=== PATIENT | female | born 1980 | race Caucasian/White ===

== ENCOUNTER → 2017-08-03 15:38 | Outpatient (CLI) | payer BC, SELFPAY ==
[2017-08-08 10:15] LABS: HPV Reflexed? NOT INDICATED
== END ==
PROVIDERS: Family Provider Internal Medicine; PCP Internal Medicine; Visit Provider Obstetrics & Gynecology
DX: Z12.4 Encounter for screening for malignant neoplasm of cervix (principal)
CPT/HCPCS: 88175; G0145

== ENCOUNTER 2018-01-01 21:06 | Emergency (ER) | payer BC, SELFPAY ==
[2018-01-01 21:06] VITALS: BP 130/87; PULSE 100; RESP 16; TEMP 37.7; O2SAT 96; BMI 37.1
[2018-01-01 22:30] LABS: Bacteria 0 SEEN /hpf (None Seen); Mucous, Urine 0 SEEN /hpf (<or=2+); Red Blood Cells-Urine 0 SEEN /hpf (0-5)
[2018-01-01 22:32] LABS: Color, Urine Yellow (Yellow); Glucose, Dipstick Normal (Normal); Ketone-Dipstick Negative (Negative); Leukocyte Esterase-Dipstick 100 /ul (Negative); Nitrite-Dipstick Negative (Negative); Occult Blood-Urine Negative /ul (Negative); Protein-Dipstick 15 mg/dl (Negative); Urine Bilirubin Dipstick Negative (Negative); Urine Clarity Clear (Clear); Urine Urobilinogen Normal (Normal)
[2018-01-01 22:45] LABS: Squamous Epithelial Cells - UA 0-5 SEEN /hpf (5-10); White Blood Cells 0-5 SEEN /hpf (0-5)
--- NOTE | 2018-01-01 22:47 | ED.VISSUMM ---
- ER Visit Summary Date of Service: 01/01/18 Chief Complaint: Abdominal pain History of Present Illness: The patient is a 37 F medical history. Prior cholecystectomy and C-sections. Patient states yesterday morning she started getting midepigastric and periumbilical abdominal pain. Associated nausea. No vomiting. No diarrhea. No constipation. No dysuria. Last menstrual period was approximately 3 weeks ago. She denies any melena. No fever. No back pain. Denies any abdominal trauma. Worse with eating better if she does not ingest food or liquids. Physical Examination: Well-appearing female vital signs stable afebrile. Temperature 998. Does not look septic or toxic. No acute distress. H EENT exam unremarkable. Neck nontender. Lungs clear to auscultation bilaterally. Heart regular rhythm no murmur. Abdomen soft. Nondistended. Normal bowel sounds. No peritoneal signs. No signs of obstruction. Both the right upper right lower quadrant unremarkable. Mild tenderness in the midepigastric and periumbilical area. Moving all 4 extremities. Neurovascularly intact. Back nontender. Neurologically awake alert no focal deficits. Test Results: CBC shows elevated white count of 15.8. H&H of 13 and 40. No bands. Electrolytes unremarkable normal gap and creatinine. Liver enzymes unremarkable except ALT is 81 AST is 68. Lipase normal. UA normal. negative. Emergency Department Course and Treatment: Patient treated with IV fluids. IV Zofran. Treatment Plan: Multiple repeat exams patient is doing well. Her abdomen is benign at this time at 01 22. She was treated with IV Toradol. She has absolutely no right lower quadrant abdominal pain. She is comfortable being discharged home with Zofran home pack. Will follow up with her primary care physician Dr. Micki Quintanilla tomorrow. I did speak to Dr. Waite on-call this evening. Disposition: Discharge Impression: Acute abdominal pain cof uncertain etiology This note was generated with [employer]park dictation software. It may contain incorrect words, spelling, and punctuation that were not noted in review of the chart prior to signing ED Disposition - Plan for ED Patient: Chief Complaint: Flank Pain Referrals: Salena Quarles DO [Primary Care Provider] -
[2018-01-01] MEDS: Ondansetron 4 MG/2 ML Vial IV (23:10)
[2018-01-01] MEDS: 0.9% Normal Saline 1,000 ML 1000 ML IV (23:10)
[2018-01-01 23:14] LABS: Pregnancy, Serum, hCG Quali. NEGATIVE Negative (0-9 Nonpreg)
[2018-01-01 23:14] LABS: Absolute Neutrophil Count 11.8 X10^3/uL (2.0-7.7); Basophil# 0.04 X10^3/uL; Basophil% 0.3 % (0-1); Eosinophil# 0.16 X10^3/uL; Hematocrit 40.2 % (37-47); Hemoglobin 13.5 g/dl (12.0-15.0); Lymphocyte % 16.4 % (19-41); Mean Corp Hgb Conc 33.6 g/gl (32-36); Mean Corpuscular Hgb 27.5 pg (27.0-32.0); Mean Corpuscular Volume 81.9 fL (81-99); Mean Platelet Vol. 11.7 fl (6.2-12.0); Monocyte# 1.18 X10^3/uL; Monocyte% 7.5 % (0-10); Neutrophil # 11.82 X10^3/uL (2.7-7.7); Neutrophil % 74.6 % (47-70); Platelet Count 224 K/mm3 (150-450); RBC Distribution Width CV 13.6 % (11.6-14.6); RBC Distribution Width SD 40.2 fl (35.1-43.9); Red Blood Count 4.91 M/mm3 (4.2-5.4); White Blood Count 15.8 K/mm3 (4.4-11.0)
[2018-01-01 23:15] LABS: POSITIVE COUNT NO; POSITIVE DIFFERENTIAL NO; POSITIVE MORPHOLOGY NO
[2018-01-01 23:25] LABS: AST(SGOT) 68 U/L (15-37); Alanine Aminotransfer ALT/SGPT 81 U/L (13-56); Albumin, Serum 3.6 g/dL (3.2-5.0); Alkaline Phosphatase 103 U/L (45-117); Anion Gap 6 (5-15); BUN 11 mg/dL (7-18); BUN/Creat Ratio 13.9 RATIO (10-20); Bilirubin, Direct 0.21 mg/dL (0.00-0.30); Calcium,Total 8.5 mg/dL (8.5-10.1); Chloride 104 mmol/L (98-107); Creatinine, Serum 0.79 mg/dL (0.55-1.02); EST Glomerular Filtration Rate 86 mL/min (>60); Est Glom Filt Rate - Afr Amer 105 mL/min (>60); Estimated Creatinine Clearance 90.39 ml/min; Globulin 4.1 g/dL (2.2-4.2); Glucose 103 mg/dL (74-106); Lipase 126 U/L (73-393); Potassium 3.8 mmol/L (3.5-5.1); Protein, Total 7.7 g/dL (6.4-8.2); Sodium Level 138 mmol/L (136-145)
[2018-01-02] MEDS: Ondansetron 4 MG/2 ML Vial IV (00:04)
[2018-01-02 00:06] VITALS: BP 136/85; PULSE 87; RESP 16; O2SAT 96
[2018-01-02] MEDS: Ketorolac 30 MG/ML Syringe IV (00:57)
--- NOTE | 2018-01-02 01:32 | DCINST.ED_ITS ---
ED Disposition - Plan for ED Patient: Disposition: Home or Assisted Living Chief Complaint: Flank Pain Instructions: ED Abdominal Pain Unkn Cause Referrals: Salena Quarles DO [Primary Care Provider] - 1 Day Additional Instructions: Zofran as needed for nausea. Tylenol and Motrin for pain. Call and follow-up with your doctor tomorrow. I did speak to the doctor mainframe applications developer for her tonight. Return to ER if feeling a lot worse or if pain radiates to the right lower quadrant.
[2018-01-02] MEDS: Ondansetron ODT 4 MG Tablet PO (01:46)
[2018-01-02 01:47] VITALS: BP 122/79; PULSE 90; RESP 16; O2SAT 99
== END 2018-01-02 01:48 | disposition home or self-care (01) ==
PROVIDERS: Emergency Provider Emergency Medicine; Family Provider Internal Medicine; PCP Internal Medicine
DX: R10.13 Epigastric pain (principal); R10.33 Periumbilical pain
CPT/HCPCS: 80048; 80076; 81001; 83690; 84703; 85025; 96361; 96374; 96375; 96376; 99285; J7030; A4216; J2405

== ENCOUNTER → 2018-10-23 | Outpatient (CLI) | payer BC, SELFPAY ==
[2018-10-23 19:54] LABS: Chlamydia Trachomatis by PCR Negative (Negative); Neisserai gonorrhoeae by PCR Negative (Negative); Probe Check PASS; Sample Adequacy Control PASS; Specimen Processing Control PASS
== END | disposition home or self-care (01) ==
LOC: LABSPEC 17:06
PROVIDERS: Visit Provider Obstetrics & Gynecology
DX: Z11.3 Encounter for screening for infections with a predominantly sexual mode of transmission (principal)
CPT/HCPCS: 87491; 87591

== ENCOUNTER 2019-02-12 20:32 | Emergency (ER) | payer BC, SELFPAY ==
[2019-02-12 20:33] VITALS: BP 152/85; PULSE 88; RESP 20; TEMP 36.7; O2SAT 97; BMI 40.1
--- NOTE | 2019-02-12 22:11 | ED.VIS.GEN ---
History of Present Illness Chief Complaint: Rash Detail of Chief Complaint: Poison sanaz Informant: Patient Onset: Yesterday Context: Sudden Onset Timing: Continuous Quality: Pruritic red rash Location: Face and neck Current Severity: Mild Maximum Severity: Moderate Worsened by: Itching Relieved by: Nothing Associated Symptoms: No associated symptoms Narrative: 38-year-old woman sent to the emergency department by her primary care physician for a Kenalog injection. Patient is on no immunosuppressive meds. She does not have history of glaucoma, ulcers and has no contraindication to systemic steroids. Prior similar symptoms: Yes Recent Illness/Hospitalization: No - Past Medical History (1) No significant past medical history Status: Acute Past Medical History - Allergies and Home Meds Allergies/Adverse Reactions: Allergies codeine phosphate [From Tylenol-Codeine #3] Allergy (Verified 02/12/19 20:33) Unknown doxycycline Allergy (Verified 02/12/19 20:33) Unknown methylergonovine maleate [From Methergine] Allergy (Verified 02/12/19 20:33) Unknown Primary Care Physician: Salena Quarles DO [Primary Care Provider] - Prior records reviewed: No Past Medical History: None Surgical History: cholecystectomy - 4 cholecystitis, no history gallstones Lives: Spouse/ Significant Other Smoking Status: Never smoker Alcohol: Rare Drugs: None - Family History Maternal Family History: Reports: No pertinent history - Living, no history pancreas disorder Paternal Family History: Reports: No pertinent history - Living, no history of pancreas disorder Review of Systems General: Denies: Chills, Fever, Sweats Eyes: Denies: Visual changes - bilaterally, Blurred Vision - bilaterally, Diplopia ENT: Denies: Bilateral ear pain, Rhinorrhea, Sore throat Musculoskeletal: Denies: Myalgias, Arthralgias, Neck pain, Back pain, Swelling, Extremity Pain, -, - Skin: Reports: Rash. Denies: Wounds Allergy: Denies: Uticaria, Swelling of the mouth, Swelling of the tongue Physical Exam Vital Signs/Narrative: Vital Signs Temp Pulse Resp BP Pulse Ox 02/12/19 20:33 98.1 F 88 20 H 152/85 H 97 Inital Vital Signs reviewed: Yes General: Well nourished, Well developed, No Acute Distress Head: Normocephalic, Atraumatic Eyes: Perrl, EOMI. Negative for: Pale conjunctiva, Scleral icterus ENT: Moist mucous membranes, No rhinorrhea Neck: Supple, Nontender, No lymphadenopathy, No JVD Skin: Normal color, No Trauma, Rash. Negative for: Cyanosis, Diaphoresis, Jaundice Neurological: Alert, Oriented x3, Cranial nerves II-XII grossly intact, Normal Strength, Normal Sensation Psychological: Normal affect, Normal Mood Diagnostic/Tx/Re-eval - Medical Decision Making She has rash consistent with contact dermatitis, poison sanaz. Since this involves the face, eyelids and neck will place on systemic steroids. She received her first dose of prednisone in the emergency department. ED Disposition - Plan for ED Patient: Disposition: Home or Assisted Living Diagnosis: Allergic dermatitis due to rhus diversjordanoba Instructions: Poison Sanaz Dermatitis Prescriptions: Prednisone 10 mg PO UD #33 tab Prescription Printed Referrals: Salena Quarles DO [Primary Care Provider] - 1 Week if not improving
[2019-02-12 22:31] VITALS: RESP 16
[2019-02-12] MEDS: predniSONE 20 MG Tablet 60 MG PO (22:31)
== END 2019-02-12 22:35 | disposition home or self-care (01) ==
LOC: ED 22:22
PROVIDERS: Emergency Provider Emergency Medicine; Family Provider Internal Medicine; PCP Internal Medicine
DX: L23.7 Allergic contact dermatitis due to plants, except food (principal)
CPT/HCPCS: 99282

== ENCOUNTER → 2019-05-27 09:36 | Outpatient (CLI) | payer BC, SELFPAY ==
--- NOTE | 2019-05-27 09:39 | RAD_ITS ---
STUDY: X-RAY - LUMBAR SPINE REASON FOR EXAM: Female, 38 years old. LBP AFTER TWISTING TECHNIQUE: 4 view(s) of the lumbar spine were obtained. COMPARISON: None FINDINGS: Normal lumbar lordosis. There is no substantial scoliosis. There is a normal alignment of the vertebrae. There is minimal multilevel endplate spondylosis of the lumbar vertebrae. Normal disc space heights. The soft tissue structures are unremarkable. RAD/L/S Spine Min 4 Views IMPRESSION: Minimal degenerative changes Electronically Signed: Neo Rashid MD at 8:18 EST Tel , Service support ,
== END ==
PROVIDERS: Family Provider Internal Medicine; PCP Internal Medicine; Referring Provider Nurse Practitioner Gerontology; Visit Provider Nurse Practitioner Gerontology
DX: M54.5 Low back pain (principal)
CPT/HCPCS: 72110

== ENCOUNTER 2019-05-31 08:26 | Outpatient (RCR) | payer BC, SELFPAY ==
--- NOTE | 2019-05-31 10:04 | HP.PTEVAL_ITS ---
Patient's Visit Information CASI CABRERA is a 38 year old F referred to Physical Therapy by Anahy Salmon NP-C with a diagnosis of LBP. Date of Evaluation: 05/31/19 Physical Therapist: Anika Rock PT, Cert MDT - Visit Plan Frequency: 2-3x /Week Duration: 4-6 Weeks Plan: POSTURE CORRECTION/STRENGTHENING, INSTRUCTION IN APPROPRIATE BODY MECHANICS AND ACTIVITY MODIFICATIONS. DLS STARTING WITH A NEUTRAL SPINE PROGRESSING ROM TOLERATED. GISELE LE ROM, STRETCHING AND STRENGTHENING. HEP INSTRUCTION. 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 HAS BEEN OFF WORK ALL WEEK. HOPING TO GO BACK MONDAY. Disability: NO. Present symptoms: LOW BACK PAIN. HAS NOT HAD LEG SX'S (GISELE THIGHS) SINCE MONDAY - ABOUT 3 DAYS AGO. Present since: MAY 23 2019. Pain Scale: WORST 7/10, LEAST 3/10. Currently: 3/10. Commenced as a result of: BENT AND TWISTED AT THE SAME TIME QUICKLY. Symptoms at onset: BACK AND GISELE THIGHS. Worse: SITTING, RISING FROM SITTING, GETTING UP AND DOWN, RAISING LEGS, TRYING TO BEND. LIFTING. STANDING. WALKING. Better: ICE. SUPINE ON FLOOR. Disturbed sleep: YES. Previous history/Previous treatment: UNREMARKABLE. THIS EPISODE - TWO CHIROPRACTIC VISIT - MONDAY AND MONDAY. WORSE AFTER MONDAY VISIT - I FELT LIKE CRAP. FELT BETTER MONDAY AND BETTER TODAY. STATES THE CHIROPRACTOR SAID SHE WAS OUT OF ALIGNMENT AND CAUSED THE MUSCLES TO SPASM. HAPPENED ON VACATION IN [place]. DROVE THERE AND WENT ON A CRUISE. CAME HOME BY CAR TOO. REFERRED TO PT AND CHIROPRACTOR BY DR. APARICIO'S GRILL ATTENDANT. STILL ON STEROID DOSE ELBA. Coughing/sneezing/straining: MILD. Gait: DECREASED CADANCE. GUARDED. Difficulty initiating urinatin: NO. Accidents: NO. Unexplained weight loss: NO. Imaging: LUMBAR X-RAY - SPONDYLOSIS. PMH/Recent major surgery: UNREMARKABLE. - Objective Sitting/Standing Posture: POOR. FH. RS. Lordosis: NORMAL. Lateral shift: NO. Relevant shift: N/A. Active Correction of posture: BETTER. Other Observations: SLOW AND GUARDED BUT INDEP GAIT INTO PT WITHOUT AD. Motor deficit: GISELE LE'S GROSSLY 5/5 WITH MMT'ING EXCEPT HIPS GRADED 4-/5. Sensory deficit: GISELE LE LIGHT TOUCH SENSATION INTACT AND SYMMETRICAL. ROM deficit: TIGHT GISELE LE HS'S. Reflexes: UNABLE TO ELICIT GISELE LE DTR'S. Dural Signs: POSITIVE GISELE LE'S. Lumbar mvmt loss: flex - MOD TO LYUDMILA. ext - MOD. R SG - MOD. L SG - MOD. INCREASED C/O LBP WITH LUMBAR FLEXION ROM TEST. GUARDED AND LIMITED ALL PLANES BUT NOT VERY PAINFUL INTO EXT AND GISELE SG'ING WITH TESTING. Core strength: POOR. TREATMENT: NEUROMUSCULAR REEDUCATION: RETRAINING OF MVMT AND POSTURE FOR SITTING, LYING AND STANDING ACTIVITIES. - Goals Goal 1:: DECREASE C/O LOW BACK PAIN Goal Time Frame: 4-6 Weeks Goal 2:: IMPROVE PERSONAL CARE, LIFTING, SITTING, STANDING, SLEEP, TRAVEL, HOMEMAKING, WORK AND RECREATIONAL FUNCTION. Goal Time Frame: 4-6 Weeks Goal 3:: INSTRUCT IN PROPHYLAXIS Goal Time Frame: 4-6 Weeks - Rehabilitation Potential Rehabilitation Potential: Good - Anticipated Interventions Patient/Client Instruction: Educate patient on: Condition, Plan of Care, Risk Factors, Benefits of Fitness Program For the Purpose of:: To improve self management Therapeutic Exercise to Include: Strength training, Endurance training, Body mechanics, Postural training, Flexibilty training, Neuromotor development, Dynamic Lumbar Stabilization For the Purpose of:: To decrease pain, To increase ROM, To improve muscle performance and motor function, To increase tolerance to activity/condition/position, To improve ability of physical actions for home/community/work/leisure, To improve gait and locomotor functions TENS: Yes IF ES: Yes Cryotherapy (ice pack, ice massage): Yes Thermo therapy (hot pack): Yes Ultrasound (thermal/non thermal): Yes For the Purpose of:: To decrease pain, To increase ROM, To improve nutrient delivery to tissue Thank you for the opportunity to evaluate your patient. For Medicare and Medicare HMO plans, please review the plan of care and approve it. It will need to be FAXED BACK to us at [phone] for Medicare purposes. For Medicare only, by signing this I certify the plan of care. Please let me know if there are questions or concerns regarding this plan of care. Physician Signature: Date:
--- NOTE | 2019-07-03 17:40 | HP.PT.NRP ---
HP - Discharge Summary (1) - Patient Information CASI CABRERA was seen in my office for initial evaluation on 05/31/19. The following Plan of Care was established for this patient: Initial Frequency: 2-3x /Week Initial Duration: 4-6 Weeks - Anticipated Interventions Patient/Client Instruction: Educate patient on: Condition, Plan of Care, Risk Factors, Benefits of Fitness Program For the Purpose of:: To improve self management Therapeutic Exercise to Include: Strength training, Endurance training, Body mechanics, Postural training, Flexibilty training, Neuromotor development, Dynamic Lumbar Stabilization For the Purpose of:: To decrease pain, To increase ROM, To improve muscle performance and motor function, To increase tolerance to activity/condition/position, To improve ability of physical actions for home/community/work/leisure, To improve gait and locomotor functions TENS: Yes IF ES: Yes Cryotherapy (ice pack, ice massage): Yes Thermo therapy (hot pack): Yes Ultrasound (thermal/non thermal): Yes For the Purpose of:: To decrease pain, To increase ROM, To improve nutrient delivery to tissue This patient was last seen in our office 05/31/19. Pertinent comments regarding their Physical therapy will appear below: This patient has not returned to Physical Therapy and is appropriate to return to MD for further follow-up as needed. At this point I will be discontinuing this patient from physical therapy. I would be happy to see this patient again in the future if found appropriate by the physician. Thank you! Anika Rock, PT, Cert MDT
== END 2019-05-31 19:00 | disposition home or self-care (01) ==
LOC: PT 08:26
PROVIDERS: Family Provider Internal Medicine; PCP Internal Medicine; Referring Provider Nurse Practitioner Gerontology; Visit Provider Nurse Practitioner Gerontology
DX: M54.5 Low back pain (principal)
CPT/HCPCS: 97112; 97161

== ENCOUNTER → 2020-04-15 | Outpatient (CLI) | payer BC, SELFPAY ==
[2020-04-20 20:06] LABS: HPV Reflexed? NOT INDICATED
== END | disposition home or self-care (01) ==
PROVIDERS: PCP Internal Medicine; Visit Provider Obstetrics & Gynecology
DX: Z12.4 Encounter for screening for malignant neoplasm of cervix (principal)
CPT/HCPCS: 88175; G0145

== ENCOUNTER → 2021-04-06 17:57 | Outpatient (CLI) | payer BC, SELFPAY ==
--- NOTE | 2021-04-06 18:00 | US_ITS ---
STUDY: THYROID ULTRASOUND REASON FOR EXAM: Female, 40 years old. Nodules. TECHNIQUE: Ultrasound evaluation of the thyroid was performed with real-time and static shea-scale imaging. COMPARISON: 07/22/2016. FINDINGS: RIGHT LOBE: The right lobe of the thyroid gland measures 6.8 x 2.2 x 1.9 cm. There is a homogeneous echotexture. There is a 1.6 x 1.1 x 1.1 cm predominantly cystic structure in the upper pole this is increasingly cystic when compared to prior study. There is a 0.4 x 0.4 x 0.6 cm minimally hypoechoic nodule in the mid thyroid. LEFT LOBE: The left lobe of the thyroid gland measures 6.5 x 1.5 x 1.1 cm. There is a heterogeneous echotexture. There is a 1.1 x 0.85 x 0.7 cm hypoechoic nodule with multiple cystic areas. There is also a predominantly cystic nodule measuring 1.1 x 0.7 x 0.8 cm in the lower pole. ISTHMUS: The isthmus measures 0.4 cm. The regional lymph nodes are normal. US/Thyroid IMPRESSION: Bilateral thyroid nodules with generalized enlarged thyroid. Nodules appear generally similar to the previous examination with minimal increase in size. No follow-up is required by TIRADS criteria due to the small size. Electronically Signed: Mac Alicea DO at 21:04 EST Tel [phone], Service support ,
== END ==
PROVIDERS: PCP Internal Medicine; Referring Provider Internal Medicine; Visit Provider Internal Medicine
DX: E04.9 Nontoxic goiter, unspecified (principal)
CPT/HCPCS: 76536

== ENCOUNTER → 2022-02-25 | Outpatient (CLI) | payer BC, SELFPAY ==
[2022-03-03 16:57] LABS: HPV APTIMA, High Risk Negative
== END | disposition home or self-care (01) ==
LOC: LABSPEC 10:39
PROVIDERS: PCP Internal Medicine; Visit Provider Student in an Organized Health Care Education/Training Program
DX: Z12.4 Encounter for screening for malignant neoplasm of cervix (principal)
CPT/HCPCS: 87624; 88175; G0145

== ENCOUNTER → 2022-08-17 | Outpatient (CLI) | payer BC, SELFPAY ==
[2022-08-17 10:21] LABS: Hematocrit 42.7 % (37-47); Hemoglobin 13.5 g/dL (12.0-15.0); Mean Corp Hgb Conc 31.6 g/dL (32-36); Mean Corpuscular Hgb 27.4 pg (27.0-32.0); Mean Corpuscular Volume 86.6 fL (81-99); Mean Platelet Vol. 11.4 fl (6.2-12.0); Platelet Count 228 K/mm3 (150-450); RBC Distribution Width CV 13.5 % (11.6-14.6); RBC Distribution Width SD 42.8 fl (35.1-43.9); Red Blood Count 4.93 M/mm3 (4.2-5.4); White Blood Count 10.3 K/mm3 (4.4-11.0)
[2022-08-17 11:13] LABS: AST(SGOT) 15 U/L (15-37); Alanine Aminotransfer ALT/SGPT 30 U/L (13-56); Albumin, Serum 3.5 g/dL (3.2-5.0); Alkaline Phosphatase 66 U/L (45-117); Anion Gap 5 (5-15); BUN 16 mg/dL (7-18); Calcium,Total 8.8 mg/dL (8.5-10.1); Chloride 110 mmol/L (98-107); EST Glomerular Filtration Rate 83 mL/min (>60); Est Glom Filt Rate - Afr Amer 101 mL/min (>60); Globulin 3.6 g/dL (2.2-4.2); Glucose 101 mg/dL (74-106); Potassium 3.6 mmol/L (3.5-5.1); Protein, Total 7.1 g/dL (6.4-8.2); Sodium Level 139 mmol/L (136-145)
== END | disposition home or self-care (01) ==
LOC: MTLAB 09:02
PROVIDERS: PCP Internal Medicine; Referring Provider Psychiatry & Neurology Neurology; Visit Provider Psychiatry & Neurology Neurology
DX: G43.009 Migraine without aura, not intractable, without status migrainosus (principal)
CPT/HCPCS: 36415; 80053; 85027

== ENCOUNTER → 2022-10-14 | Outpatient (CLI) | payer BC, SELFPAY ==
[2022-10-14 11:53] LABS: Absolute Lymphocyte Count 3.03 X10^3/uL (0.83-4.51); Absolute Neutrophil Count 4.8 X10^3/uL (2.0-7.7); Basophil# 0.06 X10^3/uL; Basophil% 0.7 % (0-1); Eosinophil# 0.15 X10^3/uL; Eosinophils% 1.7 % (0-5); Hematocrit 41.1 % (37-47); Lymphocyte # 3.03 X10^3/ul (0.83-4.51); Lymphocyte % 34.9 % (19-41); Mean Corp Hgb Conc 31.6 g/dL (32-36); Mean Corpuscular Volume 85.4 fL (81-99); Mean Platelet Vol. 11.6 fl (6.2-12.0); Monocyte# 0.54 X10^3/uL; Monocyte% 6.2 % (0-10); NRBC Flagged by Analyzer 0 % (0-5); Neutrophil # 4.81 X10^3/uL (2.7-7.7); Neutrophil % 55.6 % (47-70); Platelet Count 231 K/mm3 (150-450); RBC Distribution Width CV 13.6 % (11.6-14.6); Red Blood Count 4.81 M/mm3 (4.2-5.4); White Blood Count 8.7 K/mm3 (4.4-11.0)
[2022-10-14 12:08] LABS: Estradiol 70.1 pg/mL; Follicle Stimulating Hormone 1.6 mIU/mL; Prolactin 10.3 ng/mL; T4 Free Direct 0.96 ng/dL (0.76-1.46); Thyroid Stim Hormone (TSH) 1.68 uIU/mL (0.358-3.74)
== END | disposition home or self-care (01) ==
LOC: WOBLAB 10:50
PROVIDERS: PCP Internal Medicine; Visit Provider Student in an Organized Health Care Education/Training Program
DX: N93.9 Abnormal uterine and vaginal bleeding, unspecified (principal)
CPT/HCPCS: 36415; 82670; 83001; 83002; 84146; 84439; 84443; 85025

== ENCOUNTER → 2023-09-19 | Outpatient (CLI) | payer BC, SELFPAY ==
--- NOTE | 2023-09-19 16:25 | US_ITS ---
STUDY: ULTRASOUND OF THE FEMALE PELVIS - COMPLETE REASON FOR EXAM: Female, 42 years old. Abnormal uterine bleeding. IUD. LMP: September 04, 2023. TECHNIQUE: Transabdominal and Transvaginal TECHNICAL QUALITY: Adequate. COMPARISON: None. FINDINGS: The uterus is anteflexed and is in a midline position. The uterus measures 10.9 cm x 8.3 cm x 7.2 cm. Normal uterine cervix. The endometrium measures 5 mm in thickness, and is hyperechoic. There is no demonstrated endometrial mass. There is a 3.2 cm x 1.8 cm by 3 cm uterine fibroid. I.U.D. - The patient does have an I.U.D. The right ovary is visualized. The right ovary measures 4.3 cm x 2.8 cm x 2.1 cm. There is no right ovarian cyst or ovarian mass. There is no visualized right adnexal mass or complex lesion. There is normal arterial and normal venous vascularity. The left ovary is visualized. The left ovary measures 4.1 cm x 3.6 x 2.1 cm. There is no left ovarian cyst or ovarian mass. There is no visualized left adnexal mass or complex lesion. There is normal arterial and normal venous vascularity. There is no fluid in the cul-de-sac. US/Pelvic (Non ) IMPRESSION: 3.2 cm x 1.8 cm x 3 cm uterine fibroid. IUD is seen within the endometrium. Electronically Signed: Spenser Parker MD at 10:10 EDT ,
== END | disposition home or self-care (01) ==
LOC: US 16:25
PROVIDERS: PCP Internal Medicine; Referring Provider Nurse Practitioner Family; Visit Provider Nurse Practitioner Family
DX: N93.9 Abnormal uterine and vaginal bleeding, unspecified (principal)
CPT/HCPCS: 76856

== ENCOUNTER → 2023-09-23 | Outpatient (CLI) | payer BC, SELFPAY ==
[2023-09-23 08:10] LABS: Absolute Lymphocyte Count 2.31 X10^3/uL (0.83-4.51); Absolute Neutrophil Count 4.6 X10^3/uL (2.0-7.7); Basophil# 0.05 X10^3/uL; Basophil% 0.7 % (0-1); Eosinophil# 0.24 X10^3/uL; Eosinophils% 3.1 % (0-5); Hematocrit 40.4 % (37-47); Hemoglobin 12.9 g/dL (12.0-15.0); Lymphocyte # 2.31 X10^3/ul (0.83-4.51); Lymphocyte % 30.2 % (19-41); Mean Corp Hgb Conc 31.9 g/dL (32-36); Mean Corpuscular Hgb 27.5 pg (27.0-32.0); Mean Corpuscular Volume 86.1 fL (81-99); Mean Platelet Vol. 11.3 fl (6.2-12.0); Monocyte# 0.47 X10^3/uL; Monocyte% 6.1 % (0-10); NRBC Flagged by Analyzer 0 % (0-5); Neutrophil # 4.58 X10^3/uL (2.7-7.7); Neutrophil % 59.8 % (47-70); Platelet Count 231 K/mm3 (150-450); RBC Distribution Width CV 13.6 % (11.6-14.6); RBC Distribution Width SD 42.4 fl (35.1-43.9); Red Blood Count 4.69 M/mm3 (4.2-5.4); White Blood Count 7.7 K/mm3 (4.4-11.0)
[2023-09-23 09:16] LABS: ALB/GLOB Ratio 1.2 RATIO (0.9-2.4); AST(SGOT) 25 U/L (15-37); Alanine Aminotransfer ALT/SGPT 30 U/L (13-56); Albumin, Serum 3.5 g/dL (3.2-5.0); Alkaline Phosphatase 54 U/L (45-117); Anion Gap 5 (5-15); BUN 20 mg/dL (7-18); BUN/Creat Ratio 20.6 RATIO (10-20); Calcium,Total 8.6 mg/dL (8.5-10.1); Chloride 113 mmol/L (98-107); Creatinine, Serum 0.97 mg/dL (0.55-1.02); EST Glomerular Filtration Rate 66 mL/min (>60); Est Glom Filt Rate - Afr Amer 80 mL/min (>60); Glucose 98 mg/dL (74-106); Potassium 3.7 mmol/L (3.5-5.1); Protein, Total 6.5 g/dL (6.4-8.2); Sodium Level 140 mmol/L (136-145); T4 Free Direct 0.96 ng/dL (0.76-1.46); Thyroid Stim Hormone (TSH) 1.52 uIU/mL (0.358-3.74)
== END | disposition home or self-care (01) ==
LOC: LAB 07:41
PROVIDERS: PCP Internal Medicine; Referring Provider Nurse Practitioner Family; Visit Provider Nurse Practitioner Family
DX: N93.9 Abnormal uterine and vaginal bleeding, unspecified (principal)
CPT/HCPCS: 36415; 80053; 84439; 84443; 85025

== ENCOUNTER → 2023-10-09 | Outpatient (CLI) | payer BC, SELFPAY ==
--- NOTE | 2023-10-09 12:45 | EMB_PTH ---
PATIENT: CASI CABRERA LOC: [facility] U#:[id number] AGE/SX: 42/F ROOM: RE10/09/[address]: Dr. Julita De Oliveira DO : 1980 BED: DIS: 10/09/2023 SPEC #: [id number] RECD: 10/09/23 13:58 STATUS: FAMILIA REDarrell #: [id number] MATEO: 10/09/23 12:[address]: Julita De Oliveira DEPT: SURGICAL PATHOLOGY RECD BY: Jessica Bonilla ENTERED: 10/10/23 10:29 SP TYPE: ENDOM BX/C ROMY DR: Dr. Salena Quarles DO Tissues: Endometrium, NOS Procedures: Surgery Specimen Level IV HEADER OPERATION: Endometrial biopsy PRE-OP DIAGNOSIS: Abnormal uterine bleeding TISSUE SUBMITTED: Endometrial lining MICROSCOPIC DIAGNOSIS Endometrium, biopsy (cellblock): Scant strips of benign superficial endocervix. Detached benign squamous epithelial cells. AM/ 10/11/2023 MICROSCOPIC DESCRIPTION Slides are reviewed. GROSS DESCRIPTION Received in fixative is one container labeled with the patient's name and designated Endometrial biopsy. The specimen consists of multiple minute fragments of light hernandez soft tissue measuring in aggregate <0.1 x <0.1 x <0.1cm. The specimen is submitted in its entirety in for cellblock preparation. / 10/10/23 TC:5 CPT:74885
== END | disposition home or self-care (01) ==
LOC: LABSPEC 14:06
PROVIDERS: PCP Internal Medicine; Referring Provider Obstetrics & Gynecology; Visit Provider Obstetrics & Gynecology
DX: D26.1 Other benign neoplasm of corpus uteri (principal); N93.9 Abnormal uterine and vaginal bleeding, unspecified
CPT/HCPCS: 88305

== ENCOUNTER 2023-11-14 05:19 | Day surgery (SDC) | payer BC, SELFPAY ==
[2023-11-06 12:40] LABS: Absolute Lymphocyte Count 2.66 X10^3/uL (0.83-4.51); Absolute Neutrophil Count 5.3 X10^3/uL (2.0-7.7); Basophil# 0.06 X10^3/uL; Basophil% 0.7 % (0-1); Eosinophil# 0.27 X10^3/uL; Eosinophils% 3.1 % (0-5); Lymphocyte # 2.66 X10^3/ul (0.83-4.51); Lymphocyte % 30.3 % (19-41); Mean Corpuscular Volume 87.1 fL (81-99); Monocyte# 0.48 X10^3/uL; Monocyte% 5.5 % (0-10); NRBC Flagged by Analyzer 0 % (0-5); Neutrophil % 60.2 % (47-70); Platelet Count 227 K/mm3 (150-450); RBC Distribution Width CV 13.6 % (11.6-14.6); RBC Distribution Width SD 43.6 fl (35.1-43.9); Red Blood Count 4.82 M/mm3 (4.2-5.4); White Blood Count 8.8 K/mm3 (4.4-11.0)
[2023-11-06 13:02] LABS: Magnesium 2.7 mg/dL (1.6-2.6)
[2023-11-06 21:45] LABS: Internal QC Validated? YES +Cl - CLEAR BKGD; Pregnancy, Urine Negative Negative
[2023-11-14] VITALS (12 sets, daily range): BP systolic 92–108; BP diastolic 57–73; PULSE 50–66; RESP 16–18; TEMP 36.4–36.5; O2SAT 90–100
[2023-11-14 07:11] LABS: Bedside Glucose 99 mg/dL (74-106)
--- NOTE | 2023-11-14 07:12 | PCM.HP.BLA ---
History and Physical Date of Admission: 11/14/23 Intake Vital Signs 10/09/2411:31 11/05/2410:07 11/05/2410:08 Height 5 ft 6 in 5 ft 6 in 5 ft 6 in Weight: 229 lb BMI 36.9 BP 119/81 H Intake Visit Reasons: TRH BS Cysto Core Man Required: No Is patient in pain?: No Allergies methylergonovine maleate (From Methergine) Allergy (Verified 11/06/23 11:07) Unknownclarithromycin (From Biaxin) Adverse Reaction (Severe, Verified 11/06/23 11:07) Upset Stomachcodeine phosphate (From Tylenol-Codeine #3) Adverse Reaction (Severe, Verified 11/06/23 11:07) Hivesdoxycycline Adverse Reaction (Severe, Verified 11/06/23 11:07) Hives Medications ?Medication ?Instructions ?Recorded ?Confirmed ?Type cetirizine 10 mg tablet 10 mg PO DAILY 02/12/19 11/06/23 History ondansetron HCl 4 mg tablet 4 mg PO TID PRN nausea #27 tabs 08/08/22 11/06/23 Rx topiramate 100 mg tablet 100 mg PO BID #60 tabs 07/26/23 11/06/23 Rx Post menopausal: No Patient : No : No PFSH Medical History Injury of back Migraine headache Asthma Non-smoker Surgical History Hx of cholecystectomy Delivery by section Family History Grandmother Colon cancerFather Colon polypSister Colon polyp DiabetesGrandfather Diabetes Social History adopted: No household members: spouse and children current occupational status: employed 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 She is scheduled for a total robotic hysterectomy for heavy periods. She had 3 sections and is mildly obese with a bmi of 36.7%. She had an EMB that was benign. ultrasound shows the following: FINDINGS: The uterus is anteflexed and is in a midline position. The uterus measures 10.9 cm x 8.3 cm x 7.2 cm. Normal uterine cervix. The endometrium measures 5 mm in thickness, and is hyperechoic. There is no demonstrated endometrial mass. There is a 3.2 cm x 1.8 cm by 3 cm uterine fibroid. I.U.D. - The patient does have an I.U.D. The right ovary is visualized. The right ovary measures 4.3 cm x 2.8 cm x 2.1 cm. There is no right ovarian cyst or ovarian mass. There is no visualized right adnexal mass or complex lesion. There is normal arterial and normal venous vascularity. The left ovary is visualized. The left ovary measures 4.1 cm x 3.6 x 2.1 cm. There is no left ovarian cyst or ovarian mass. There is no visualized left adnexal mass or complex lesion. There is normal arterial and normal venous vascularity. There is no fluid in the cul-de-sac. US/Pelvic (Non ) IMPRESSION: 3.2 cm x 1.8 cm x 3 cm uterine fibroid. IUD is seen within the endometrium. ROS Const ROS Unobtainable: All systems reviewed & are unremarkable except as noted in H Resp Resp: Reports system reviewed and no additional complaints, except as documented; Denies cough GI GI: Reports as per HPI Psych Psych: Reports system reviewed and no additional complaints, except as documented Exam Const General: cooperative, healthy appearing, comfortable and no acute distress Resp Effort & Inspection: normal respiratory effort Skin General: no rashes or lesions noted Psych Appearance: grossly normal Speech and Movement: speech and movement normal Coding Level of Care Code Off vis,est,level 4 Diagnoses Abnormal uterine bleeding (AUB) N93.9 Assessment and Plan Assessment and Plan (1) Abnormal uterine bleeding (AUB): Status: Acute Plan: After discussing the patient's diagnosis and treatment plan options, patient wishes to proceed with surgical management. I have discussed with the patient the risks, benefits, and alternatives of the procedure which include but are not limited to risks of anesthesia, bleeding, infection, possible damage to bowel, bladder, or surrounding vasculature which could lead to additional surgery to evaluate any complications. Patient agrees to procedure and wishes to proceed. ACOG/uptodate references given for additional information regarding procedure. plan for total robotic hysterectomy bilateral salpingectomy, cystscopy on 11/14/23
[2023-11-14] MEDS: Cefazolin 2 GM in 0.9% Normal Saline (100mL Bag) 100 ML IV (07:30)
--- NOTE | 2023-11-14 07:30 | HYST_PTH ---
PATIENT: CASI CABRERA LOC: [facility] [place] U#:[id number] AGE/SX: 43/F ROOM: RE11/14/[address]: Dr. Julita De Oliveira DO : 1980 BED: DIS: 11/14/2023 SPEC #: [id number] RECD: 11/14/23 10:50 STATUS: FAMILIA MILLAN #: [id number] MATEO: 11/14/23 07:[address]: Julita De Oliveira DEPT: SURGICAL PATHOLOGY RECD BY: Jessica Bonilla ENTERED: 11/14/23 12:07 SP TYPE: HYSTERECT OTHR DR: Dr. Salena Quarles DO Tissues: Uterus, NOS Procedures: Surgery Specimen Level V HEADER OPERATION: ERAS, laparoscopic robotic hysterectomy bilateral salpingectomy, cystoscopy PRE-OP DIAGNOSIS: Abnormal uterine bleeding TISSUE SUBMITTED: Uterus, cervix, bilateral fallopian tubes MICROSCOPIC DIAGNOSIS Uterus, cervix, bilateral fallopian tubes, hysterectomy and bilateral salpingectomy: Cervix - Chronic cervicitis Endometrium - Weakly proliferative endometrium and focal changes consistent with exogenous hormone effects. Myometrium - Diffuses adenomyosis. - Intramural and subserosal leiomyomas x 2 (1.0 and 2.5cm in greatest dimension). Bilateral fallopian tubes- No pathologic diagnosis. LUCIANO/ 11/15/2023 MICROSCOPIC DESCRIPTION Slides are reviewed. GROSS DESCRIPTION Received in fixative is one container labeled with the patient's name and designated uterus, cervix, bilateral fallopian tubes. The specimen consists of a hysterectomy specimen consisting of uterus with cervix and attached bilateral fallopian tubes. The uterus with cervix weighs 195 gm and measures 15.0 x 8.5 x 8.5 cm. The serosal surface is ragged and anteriorly. A subserosal nodule is also noted. The ectocervical mucosa is unremarkable. The external os is circular in contour. The endocervical canal measures 4.5 cm in length and the endocervical mucosa is hernandez glistening and unremarkable. The triangular endometrial cavity measures 6.0 cm in length and 3.5 cm in width. The endometrium is hernandez, glistening without any mass lesions and measures 0.1 cm in thickness. Section of the uterine wall reveal one intramural to subserosal nodular mass measuring 2.5cm in greatest dimension. A smaller intramural nodular mass is also noted measuring 1.0cm in greatest dimension. Sections of these masses reveal hernandez whorled cut surfaces without areas of hemorrhage, necrosis or cystic degeneration. Uterine wall measures up to 3.5cm in thickness. Right fallopian tube measures 6.5cm in length and up to 1.0cm in thickness. Fimbrial end is identified. Sections reveal unremarkable cut surfaces. Left fallopian tube is similar in appearance to right and measures 5.0cm in length and up to 0.7cm in diameter. [employer] sections are submitted in nine cassettes as follows: 1 - anterior cervix, 2 - posterior cervix, 3 & 4 - anterior uterine wall, 5 & 6 - posterior uterine wall, 7- nodular masses, 8- right fallopian tube, 9- left fallopian tube. SJ: 11/14/2023 TC:5 CPT: 19412
--- NOTE | 2023-11-14 07:35 | DCINST_ITS ---
Discharge Instructions Diet Discharge Diet: No restrictions Activity May resume sexual activity in: 6 weeks Weight Bearing Status: Full weight bearing Dressing / Incision Call your doctor if your incision/area has: Continuous Slow Oozing, Sudden Increased Bleeding, Increased Pain/ Swelling, Increased Redness and Foul Smelling Discharge Call your doctor if you observe: Fever of 101 or Higher, Using more than 1 pad per hour, Shortness of breath, Chest pain and Uncontrolled pain Suture Line Care: Avoid Pulling/Pushing and Avoid Pinching/Bending Remove Dressing in: 1 week (if present) Cleanse incision/area with: Soap & Water and Keep Dressing Clean & Dry Follow Up Care Please Follow Up With: Julita De Oliveira DO When: Call to make an appointment with your doctor for a postop visit in 2 and 6 weeks Test Results: Test results from this visit will be discussed in further detail at your follow- up appointment, if applicable. Discharge Plan Admission Primary Reason for Your Visit: hysterectomy Attending Provider: Julita De Oliveira Primary Care Provider: Salena Quarles Instructions Print Language: Kiswahili Discharge Orders/Prescriptions Prescriptions: New hydrocodone-acetaminophen 5-325 mg tablet 1 tab PO Q4H PRN (Reason: pain) 7 Days Qty: 20 0RF ibuprofen 800 mg tablet 800 mg PO Q8H PRN (Reason: pain) Qty: 30 0RF Continued topiramate 100 mg tablet 100 mg PO BID Qty: 60 9RF cetirizine 10 MG tablet 10 mg PO DAILY ondansetron HCl 4 mg tablet 4 mg PO TID PRN (Reason: nausea ) Qty: 27 6RF Referrals / Follow Up: Salena Quarles DO [Primary Care Provider] - Disposition Disposition (needs filled in before D/C Order can be placed): Home, Self Care
--- NOTE | 2023-11-14 07:41 | PCM.PRE.AN2 ---
ASA Classification* ASA Classification ASA Classification: 3 Assessment & Plan Anesthesia* Anesthesia Assessment Anesthesia Assessment: Discussed sedation and/or anesthesia options, risks, benefits, and alternatives with patient/parents/legal guardian/POA. Questions invited. The patient/parents/legal guardian/POA seems to understand and agrees to proceed with anesthesia plan. Reviewed the physical assessment, medical history, allergy history and patient home medications list prior to surgery/procedure/anesthetic and documented any changes. Performed airway and anesthesia risk assessments. 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 When Was Last Pacemaker Check QUESTION #4 FULL TEXT: You/Your Family Experience fever (hyperthermia) with Anesthesia Last Oral Intake Last Oral intake: Last Oral Intake NPO since Meds taken in AM with sips of water? Meds patient instructed to take am of surgery PONV PONV - wood inspector: PONV - wood inspector Female Yes 10/30/23 08:24 HX of Motion Sickness No 10/30/23 08:24 HX of N/V After Surgery No 10/30/23 08:24 Non-Smoker Yes 10/30/23 08:24 Duration of Surgery greater Yes 10/30/23 08:24 than 60 minutes Number of Risk Factors 3 10/30/23 08:24 PONV Score Moderate Risk 10/30/23 08:24 Height & Weight Height & Weight: Anesthesia: Height & Weight Height 5 ft 6 in 11/06/23 11:08 Respiratory Assessment Respiratory Assessment - wood inspector: Respiratory Tract Infection Hx - wood inspector Hx Respiratory Tract Infection Yes: NASAL CONGESTION DUE TO 10/30/23 08:24 ALLERGIES STOP Sleep Apnea STOP Sleep Apnea - wood inspector: STOP Sleep Apnea - wood inspector Hx Hypertension No 10/30/23 08:24 Hx Sleep Apnea No 10/30/23 08:24 CPAP No 08/25/14 19:33 BIPAP No 08/25/14 19:33 Do you snore loudly (louder No 10/30/23 08:24 than talking or can be heard Do you often feel tired/ No 10/30/23 08:24 fatigued/ sleepy during daytime? Has anyone observed you stop No 10/30/23 08:24 breathing during sleep? STOP Results Negative 10/30/23 08:24 QUESTION #5 FULL TEXT : Do you snore loudly (louder than talking or can be heard through closed doors)? Tobacco Use History Tobacco Use History - wood inspector: Tobacco Use History - wood inspector Tobacco Use Smoking Status Never smoker 10/30/23 08:24 Hx Tobacco Use No 10/30/23 08:24 Years Smoking Packs Smoked per Day Smoking Cessation Date was within the last 15 years Hx Smoking Cessation Date Hx Smoking Cessation Counseling Hematologic Medial History Hematologic Hx - wood inspector: Hematologic Medical Hx - boom man Hx of Blood Transfusion No 10/30/23 08:24 Hx of Transfusion in last 3 No 10/30/23 08:24 Months Date of Last Transfusion (if within last 3 months) Ever experience any problems No 10/30/23 08:24 with transfusion(s)? Specify any problems Hx of Preganancy in last 3 No 10/30/23 08:24 Months Nurse Filling Out Transfusion DSCHRIBER 10/30/23 08:24 & Questions: Date: 10/30/23 10/30/23 08:24 Time: 08:25 10/30/23 08:24 Patient unable to answer at this time (ie. confused, unrespo /Reproduction History /Reproductive History - wood inspector: /Reproductive Hx- wood inspector Hx Now No 10/30/23 08:24 Gestational Age (in weeks): EDC: Hx Hx Para Hx Section SAB No 11/06/23 11:08 Active Medications Active Medications: Current Medications Generic Name Dose Route Start Last Admin Trade Name Freq PRN Reason Stop Dose Admin Acetaminophen 1,000 mg 11/14/23 11:05 Acetaminophen 500 Mg Tablet PO 11/14/23 11:06 PREOP ONE Celecoxib 400 mg 11/14/23 11:05 Celecoxib 200 Mg Capsule PO 11/14/23 11:06 X1 ONE Dexamethasone Sodium Phosphate 8 mg 11/14/23 11:05 Dexamethasone 4 Mg/Ml Vial IV 11/14/23 11:06 X1 ONE Gabapentin 600 mg 11/14/23 11:05 Gabapentin 600 Mg Tablet PO 11/14/23 11:06 PREOP ONE Lactated Ringer's 1,000 mls @ 40 mls/hr 11/14/23 11:05 IV .Q25H SARAI Cefazolin Sodium 2 gm/ Sodium 110 mls @ 150 mls/hr 11/14/23 11:05 Chloride IV 11/14/23 11:48 PREOP ONE Lactated Ringer's 1,000 mls @ 70 mls/hr 11/14/23 11:05 IV .[id number] SARAI Magnesium Sulfate 1 gm/ 102 mls @ 408 mls/hr 11/14/23 11:05 Dextrose IV 11/14/23 11:19 X1 ONE Insulin Human Lispro 0 unit 11/14/23 11:05 Insulin Lispro 100 Unit/Ml Insuln.Pen SC Q4H PRN PRN BG >/= 180, SEE PROTOCOL Protocol Ondansetron HCl 4 mg 11/14/23 11:05 Ondansetron 4 Mg/2 Ml Vial IV 11/14/23 11:06 X1 ONE Phenazopyridine HCl 190 mg 11/14/23 11:05 Phenazopyridine 95 Mg Tablet PO 11/14/23 11:06 X1 ONE Anesthesia Focused Assessment* Airway Assessment Mouth opens: >3 cm Mallampati Score: II Focused Labs Anesthesia Preop lab: CBC WBC 8.8 K/mm3 (4.4-11.0) 11/06/23 12:05 RBC 4.82 M/mm3 (4.2-5.4) 11/06/23 12:05 Hgb 13.0 g/dL (12.0-15.0) 11/06/23 12:05 Hct 42.0 % (37-47) 11/06/23 12:05 Plt Count 227 K/mm3 (150-450) 11/06/23 12:05 CHEMISTRY Potassium 3.7 mmol/L (3.5-5.1) 09/23/23 07:50 Sodium 140 mmol/L (136-145) 09/23/23 07:50 Magnesium 2.7 mg/dL (1.6-2.6) H 11/06/23 12:04 BUN 20 mg/dL (7-18) H 09/23/23 07:50 Creatinine 0.97 mg/dL (0.55-1.02) 09/23/23 07:50 Glucose 98 mg/dL (74-106) 09/23/23 07:50 POC Glucose 99 mg/dL (74-106) 11/14/23 05:59 TSH 1.52 uIU/mL (0.358-3.74) 09/23/23 07:50 COAG Urine Test Negative Negative 11/06/23 12:05 Review of Systems (Anesthesia) ROS Narrative System reviewed and no additional complaints, except as documented. PFSH Medical History Injury of back Migraine headache Asthma Non-smoker Home Medications ?Medication ?Instructions ?Recorded ?Last Taken ?Type cetirizine 10 mg tablet 10 mg PO DAILY 02/12/19 02/12/19 History ondansetron HCl 4 mg tablet 4 mg PO TID PRN nausea #27 tabs 08/08/22 Unknown Rx topiramate 100 mg tablet 100 mg PO BID #60 tabs 07/26/23 Unknown Rx hydrocodone-acetaminophen 5-325mg 1 tab PO Q4H PRN pain 7 days #20 11/14/23 Unknown Rx 5mg-325mg tabs ibuprofen 800 mg tablet 800 mg PO Q8H PRN pain #30 tabs 11/14/23 Unknown Rx Allergy/AdvReac Type Severity Reaction Status Date / Time methylergonovine maleate Allergy Unknown Verified 11/06/23 11:07 (From Methergine) clarithromycin (From Biaxin) AdvReac Severe Upset Verified 11/06/23 11:07 Stomach codeine phosphate (From AdvReac Severe Hives Verified 11/06/23 11:07 Tylenol-Codeine #3) doxycycline AdvReac Severe Hives Verified 11/06/23 11:07 Family History Grandmother Colon cancer Father Colon polyp Sister Colon polyp Diabetes Grandfather Diabetes Surgical History Hx of cholecystectomy Delivery by section Social History adopted: No household members: spouse and children current occupational status: employed 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
[2023-11-14 09:10] LABS: Internal QC Validated? YES +Cl - CLEAR BKGD; Pregnancy, Urine Negative Negative
[2023-11-14] MEDS: Bupivacaine 0.25% 30 ML Vial (09:55)
--- NOTE | 2023-11-14 09:58 | OP.PCM_ITS ---
Problems Associated Problem List Diagnoses (1) Abnormal uterine bleeding (AUB): (2) Fibroid uterus: Report of Operation Date of Procedure: 11/14/23 Pre-Operative Diagnosis: 43 y/o with history of 3 sections, large fibroid uterus, menorrhagia, and obesity. Post-Operative Diagnosis: 43 y/o with history of 3 sections, large fibroid uterus, menorrhagia, and obesity. Surgery/Procedure Performed:: robotic hysterectomy, bilateral salpingectomy, cystoscopy, lysis of adhesions. Description of Surgical Findings:: Findings: [ ] size uterus, normal appearing ovaries and tubes. On exploration of the abdominal cavity the uterus, adnexa, bowel, and liver were found to be normal. Cystoscopy showed no evidence of leaking at approximately 250 cc of normal saline, positive ureteral orifices and jet flow are seen and no suture material was appreciated in the bladder. Specimens removed: Uterus and cervix, [Bilateral tubes and ovaries] Surgeon: Julita De Oliveira multi site leasing consultant: Elizabeth Fritz Type of Anesthesia: General Specimen's removed: uterus, cervix, fallopian tubes Drains: none Estimated Blood Loss (mL): 100cc Description of Procedure: Reason for surgery: This is a 43-year-old G3, P3 who presented to my office with history of 3 prior sections, pelvic pain, fibroid uterus, and menorrhagia despite having an IUD in place. the planned procedure is for a robotic hysterectomy the risks benefits and alternatives were discussed with the patient the patient had a clear understanding of the procedure and a consent form was signed. Procedure: The patient was placed in the dorsal low lithotomy position and prepped and draped in the normal sterile fashion both abdominally and in the perineum. Her legs were placed in stirrups a Solo catheter was inserted into the urethra without difficulty. A weighted speculum was placed in the vagina and a single- tooth tenaculum was used to grasp the anterior lip of the cervix. An advincula uterine manipulator was inserted through the cervix without complication. It was then tied into place at the 2 and 10:00 locations on the cervix. Gloves were changed and attention was turned towards the abdomen. Approximately 23 cm above the pubic symphysis in the midline, and after Marcaine injection, a 8 mm incision was made. An 8 mm trocar was inserted through the laparoscope, then inserted into the abdomen under direct visualization using the laparoscope. Good abdominal placement was noted and no complications were appreciated. An air seal device was utilized to create pneumoperitoneum. At 12 cm lateral to the midline on the left and right sides 8 mm accessory ports were placed. Next a left upper quadrant 8 mm certified surgical tech/first assistant port site was placed. The patient was placed in steep Trendelenburg position. The robot was docked. A large, dense omental adhesion was noted to be attached to the anterior abdominal wall. This was gently taken down with traction and cautery. The hysterectomy was initiated first by taking down the round ligament on each side using the vessel sealer device. The fallopian tube was grasped on the right side and the underlying mesosalpinx was cauterized and cut. The ovarian liga ment was then taken down using the vessel sealer device. The broad ligament was then and taken down using the vessel sealer device. Next dense adhesions of the lower uterine segment were taken down using monopolar cautery and the bladder flap was taken down. This was also done using monopolar cautery to the level of the cervical vaginal junction. After the bladder flap was created, uterine vessels were then isolated and cauterized using the vessel sealer device and EndoShears. At this point the uterine vessels were taken down further starting from the ascending branch, dissecting along the edges of the cervix to the level of the cervical vaginal junction with hemostasis appreciated. The cervical vaginal junction was then using monopolar cautery in a circumferential pattern across the superior aspect of the cervix. The specimen was delivered through the vagina and sent to pathology. However due to the large size of the anterior uterine fibroid, a vaginal laceration was appreciated and suture ligated with a 3-0 vicryl suture. The remaining vaginal cuff was then closed using a V lock suture. This was performed in a running technique. Excellent hemostasis was obtained and good closure was noted. Irrigation was then performed. All operative sites were noted to be hemostatic. A cystoscopy was performed with a 70 degree cystoscope through the urethra into the bladder without complication. The bladder was instilled with approximately 250 cc of normal saline. Intraoperative images were made. Ureteral orifices and jets were identified. No suture material was appreciated in the bladder. The bladder was then drained and cystoscope was removed. The abdominal cavity was again examined using the laparoscope after the robot was undocked. All operative sites were noted to be hemostatic. The trochars were removed under direct visualization without complication and pneumoperitoneum was reduced. At this point the skin was then closed using 4-0 Monocryl subcuticular stitch and sealed with surgical glue. The patient tolerated the procedure well sponge lap and needle counts were correct x2 the patient was taken to the recovery room in stable condition. Complications none Admit VTE Documentation VTE Present on Admission: Yes VTE Pharm Prophylaxis ordered?: No Multi Select Codes Urinary/Genital Urinary/Genital CPT Codes: 71853 Cystoscopy, 85302 TLH+BS/O <250gr uterus and Other Procedure See Report (lysis of adhesions )
--- NOTE | 2023-11-14 10:08 | PCM.POST.ANE ---
Anesthesia: Postop Eval I Current Vital Signs Temperature: 97.7 F Pulse Rate: 66 Blood Pressure: 100/64 Respiratory Rate: 18 Pulse Ox: 93 Oxygen Delivery Method: Nasal Cannula (with etco2) Oxygen Flow Rate (L/min): 6 CO2 Monitorin Assessment Airway patent: Yes Spontaneous unlabored respirations: Yes Mental status: Calm and Asleep nausea: No Vomiting: No Anesthesia Complication: No Fluid Hydration Crystalloid volume administer (ml): 1,400 Total IV fluid infused: 1,400 Progress Note Anesthesia document: Postop Eval 1 completed: Yes
[2023-11-14] MEDS: Lactated Ringers @ 70 MLS/HR 70 ML IV (10:30)
[2023-11-14 10:43] LABS: Bedside Glucose 133 mg/dL (74-106)
--- NOTE | 2023-11-14 13:08 | POSTOPAN2_ITS ---
Anesthesia Postop Eval I Sum Postop Eval Completion status Anesthesia document: Postop Eval 1 completed: Yes Anesthesia Postop Eval I Summary Anesthesia Postop Eval I Summary: Anesthesia Postop Eval I: Assessment Summary Airway patent Yes 11/14/23 10:11 ASSISTANT [email or web address] Spontaneous unlabored Yes 11/14/23 10:11 ASSISTANT [email or web address].CSIR respirations Mental status Calm,Asleep 11/14/23 10:11 ASSISTANT [email or web address].CSIR nausea No 11/14/23 10:11 ASSISTANT [email or web address].CSIR Vomiting No 11/14/23 10:11 ASSISTANT [email or web address].CSIR Anesthesia Postop Eval I: Fluid Summary Crystalloid volume administer 1,400 11/14/23 10:11 ASSISTANT [email or web address].CSIR (ml) Colloids volume administered ( ml) Blood Product volume administered (ml) Total IV fluid infused 1,400 11/14/23 10:11 ASSISTANT [email or web address].CSIR Anesthesia Postop Eval I: Summary Notes Anesthesia Complication No 11/14/23 10:11 ASSISTANT [email or web address].CSIR Anesthesia Complication Comment: Post-operative progress note Anesthesia: Postop Eval II Evaluation Mental status: Awake and Calm Pain Level: 1 nausea: No Vomiting: No Complications Anesthesia Complication: No
--- NOTE | 2023-11-14 13:08 | PCM.POSTANE2 ---
Anesthesia Postop Eval I Sum Postop Eval Completion status Anesthesia document: Postop Eval 1 completed: Yes Anesthesia Postop Eval I Summary Anesthesia Postop Eval I Summary: Anesthesia Postop Eval I: Assessment Summary Airway patent Yes 11/14/23 10:11 JOURNEYMAN [email or web address] Spontaneous unlabored Yes 11/14/23 10:11 JOURNEYMAN [email or web address].CSIR respirations Mental status Calm,Asleep 11/14/23 10:11 JOURNEYMAN [email or web address].CSIR nausea No 11/14/23 10:11 JOURNEYMAN LINEMAN.CSIR Vomiting No 11/14/23 10:11 JOURNEYMAN [email or web address].CSIR Anesthesia Postop Eval I: Fluid Summary Crystalloid volume administer 1,400 11/14/23 10:11 JOURNEYMAN [email or web address].CSIR (ml) Colloids volume administered ( ml) Blood Product volume administered (ml) Total IV fluid infused 1,400 11/14/23 10:11 JOURNEYMAN [email or web address].CSIR Anesthesia Postop Eval I: Summary Notes Anesthesia Complication No 11/14/23 10:11 JOURNEYMAN LINEMAN.CSIR Anesthesia Complication Comment: Post-operative progress note Anesthesia: Postop Eval II Evaluation Mental status: Awake and Calm Pain Level: 1 nausea: No Vomiting: No Complications Anesthesia Complication: No
== END 2023-11-14 12:48 | disposition home or self-care (01) ==
LOC: AC 07:04 → SDC 07:04 → AC 07:05
PROVIDERS: Anesthesiology; PCP Internal Medicine; Referring Provider Obstetrics & Gynecology; Visit Provider Obstetrics & Gynecology
PROC: 0UT90ZZ Resection of Uterus, Open Approach (ICD-10-PCS; CPT 58571; principal; 2023-11-14 07:10)
DX: D25.2 Subserosal leiomyoma of uterus (principal); E66.9 Obesity, unspecified; N93.9 Abnormal uterine and vaginal bleeding, unspecified; N92.0 Excessive and frequent menstruation with regular cycle; Z68.36 Body mass index [BMI] 36.0-36.9, adult; Z97.5 Presence of (intrauterine) contraceptive device; N72 Inflammatory disease of cervix uteri; N80.03 Adenomyosis of the uterus; D25.1 Intramural leiomyoma of uterus; Z79.899 Other long term (current) drug therapy
CPT/HCPCS: 58571; 00840; 36415; 81025; 82962; 83735; 85025; 86850; 86900; 86901; 88307; J7120; J2405; J3475